=== PATIENT | female | born 1975 | race Caucasian/White ===

== ENCOUNTER 2016-11-14 14:57 | Outpatient (RCR) | payer BC | END 2017-02-12 | disposition home or self-care (01) | LOC: LAB → EDSEX 14:57 | DX: Z00.00 Encounter for general adult medical examination without abnormal findings (principal) ==

== ENCOUNTER → 2017-05-11 | Outpatient (CLI) | payer BC ==
[2017-05-12 01:04] LABS: T3 TOTAL 101 ng/dL (87-178)
== END ==
LOC: LAB 08:05
PROVIDERS: Internal Medicine
DX: L65.9 Nonscarring hair loss, unspecified (principal); R53.83 Other fatigue; I10 Essential (primary) hypertension

== ENCOUNTER → 2019-09-23 | Outpatient (CLI) | payer BC ==
[2019-09-23 09:02] LABS: EOS # 0.1 (0.04-0.40); EOS % 1.1 % (1.0-5.0); HEMATOCRIT 44.5 % (37.0-47.0); HEMOGLOBIN 14.4 g/dL (12.5-16.0); LYMPH# 1.6 (1.50-4.00); MEAN CELL VOLUME 95 fl (78-100); MEAN CORPUSCULAR HEMOGLOBIN 31 pg (27-31); MEAN CORPUSCULAR HGB CONC 32 g/dL (33-37); MEAN PLATELET VOLUME 9.9 fl (7.4-10.4); MONO # 0.5 (0.20-0.80); NEU # 2.3 (1.40-6.50); PLATELET COUNT 267 K/mm3 (130-400); RED CELL DISTRIBUTION WIDTH 13.2 % (11.5-14.5); WHITE BLOOD COUNT 4.5 K/mm3 (4.8-10.8)
[2019-09-23 09:10] LABS: ALBUMIN 4.9 g/dL (3.5-5.0); POTASSIUM 4.1 mmol/L (3.5-5.1)
[2019-09-23 09:11] LABS: CALCIUM 9.7 mg/dL (8.3-10.5)
[2019-09-23 09:12] LABS: TOTAL PROTEIN 7.8 g/dL (6.4-8.3)
[2019-09-23 09:14] LABS: TOTAL BILIRUBIN 1.3 mg/dL (0.2-1.2)
[2019-09-23 10:03] LABS: ERYTHROCYTE SEDIMENTATION RATE 1 mm/hr (0-20)
[2019-09-25 15:51] LABS: .COPPER,S 0.95 mcg/mL (())
== END ==
LOC: LAB 08:22
PROVIDERS: Internal Medicine
DX: Z00.00 Encounter for general adult medical examination without abnormal findings (principal); M50.30 Other cervical disc degeneration, unspecified cervical region; M08.4 Pauciarticular juvenile rheumatoid arthritis; M54.81 Occipital neuralgia; E28.2 Polycystic ovarian syndrome

== ENCOUNTER → 2020-09-28 | Outpatient (CLI) | payer BC, OTHER ==
[~2020-09-28] MED LIST: CEFAZOLIN 1 GM VIAL IV; NORCO 325 MG-7.1 TA1 PO; XANAX0.25 M1 PO; ZOLOFT25 M1 PO
[2020-09-28 09:25] LABS: EOS # 0.1 (0.04-0.40); EOS % 1.8 % (1.0-5.0); HEMATOCRIT 43.9 % (37.0-47.0); LYMPH# 1.4 (1.50-4.00); MEAN CELL VOLUME 95 fl (78-100); MEAN CORPUSCULAR HEMOGLOBIN 30 pg (27-31); MEAN CORPUSCULAR HGB CONC 32 g/dL (33-37); MEAN PLATELET VOLUME 9.5 fl (7.4-10.4); MONO # 0.5 (0.20-0.80); PLATELET COUNT 240 K/mm3 (130-400); RED BLOOD COUNT 4.64 M/mm3 (4.10-5.30); WHITE BLOOD COUNT 3.9 K/mm3 (4.8-10.8)
[2020-09-28 09:27] LABS: ALBUMIN 4.6 g/dL (3.5-5.0); POTASSIUM 4.1 mmol/L (3.5-5.1); SODIUM 141 mmol/L (136-145)
[2020-09-28 09:28] LABS: CALCIUM 9.1 mg/dL (8.3-10.5)
[2020-09-28 09:29] LABS: TOTAL PROTEIN 7.6 g/dL (6.4-8.3)
[2020-09-28 09:30] LABS: GLUCOSE 83 mg/dL (65-105)
[2020-09-28 09:31] LABS: CARBON DIOXIDE 27 mmol/L (22-29); TOTAL BILIRUBIN 1.2 mg/dL (0.2-1.2)
[2020-09-28 09:35] LABS: AST-SGOT 20 U/L (5-34)
[2020-09-28 09:36] LABS: ALT/SGPT 16 U/L (0-55)
[2020-09-28 10:32] LABS: ERYTHROCYTE SEDIMENTATION RATE 3 mm/hr (0-20)
[2020-09-29 02:39] LABS: T3 TOTAL 101 ng/dL (58-159)
== END ==
LOC: LAB 08:57
PROVIDERS: Internal Medicine
DX: Z00.00 Encounter for general adult medical examination without abnormal findings (principal)

== ENCOUNTER → 2020-11-09 | Outpatient (CLI) | payer BC, OTHER | LOC: LAB 16:35 | DX: Z01.812 Encounter for preprocedural laboratory examination (principal); M94.0 Chondrocostal junction syndrome [Tietze]; Z20.822 Contact with and (suspected) exposure to COVID-19 ==

== ENCOUNTER 2020-12-05 18:24 | Emergency (ER) | payer BC, OTHER ==
[2020-12-05] MEDS ORDERED: NORCO 325 MG-7.1 TA1 PO (18:59)
[2020-12-05 19:51] LABS: HEMATOCRIT 37.8 % (37.0-47.0); HEMOGLOBIN 12.8 g/dL (12.5-16.0); MEAN CELL VOLUME 93 fl (78-100); MEAN CORPUSCULAR HEMOGLOBIN 31 pg (27-31); MEAN CORPUSCULAR HGB CONC 34 g/dL (33-37); MEAN PLATELET VOLUME 9.6 fl (7.4-10.4); PLATELET COUNT 238 K/mm3 (130-400); RED BLOOD COUNT 4.08 M/mm3 (4.10-5.30); RED CELL DISTRIBUTION WIDTH 13.1 % (11.5-14.5); WHITE BLOOD COUNT 18.3 K/mm3 (4.8-10.8)
[2020-12-05 20:02] LABS: ALBUMIN 4.2 g/dL (3.5-5.0)
[2020-12-05 20:03] LABS: POTASSIUM 3.6 mmol/L (3.5-5.1)
[2020-12-05 20:04] LABS: CALCIUM 8.6 mg/dL (8.3-10.5)
[2020-12-05 20:05] LABS: TOTAL PROTEIN 6.7 g/dL (6.4-8.3)
[2020-12-05 20:07] LABS: TOTAL BILIRUBIN 2.3 mg/dL (0.2-1.2)
[2020-12-05 20:09] LABS: URINE APPEARANCE CLEAR; URINE BILIRUBIN NEGATIVE (NEGATIVE); URINE BLOOD TRACE (NEGATIVE); URINE COLOR YELLOW; URINE GLUCOSE NEGATIVE (NEGATIVE); URINE KETONE NEGATIVE (NEGATIVE); URINE LEUKOCYTE ESTERASE NEGATIVE (NEGATIVE); URINE MUCUS PRESENT (NOT PRESENT); URINE NITRATE NEGATIVE (NEGATIVE); URINE PROTEIN(semi-quant) TRACE mg/dL (NEGATIVE); URINE UROBILINOGEN NORMAL (NORMAL)
[2020-12-05 20:15] LABS: BAND 3 % (0-10); LYMPHOCYTE 7 % (20-51); MONOCYTE 6 % (3-10); NEUTROPHILS 84 % (42-75)
[2020-12-05 20:55] LABS: ERYTHROCYTE SEDIMENTATION RATE 2 mm/hr (0-20)
[2020-12-05 23:59] VITALS: BP 111/88
[2020-12-10] MEDS ORDERED: CEFAZOLIN 1 GM VIAL IV (09:31)
[2021-02-19] MEDS ORDERED: ZOLOFT25 M1 PO (13:11)
[2021-02-19] MEDS ORDERED: XANAX0.25 M1 PO (13:12)
== END 2020-12-05 23:59 | disposition short-term general hospital (02) ==
LOC: ED 18:24
PROVIDERS: Physician Assistant
DX: J86.9 Pyothorax without fistula (principal); L03.313 Cellulitis of chest wall; A41.9 Sepsis, unspecified organism; Z20.822 Contact with and (suspected) exposure to COVID-19; Z98.890 Other specified postprocedural states; Z88.2 Allergy status to sulfonamides; Z88.6 Allergy status to analgesic agent; Z79.891 Long term (current) use of opiate analgesic
CPT/HCPCS: J2270; J2405; J2543; J3370; J7030; J7050; Q9967

== ENCOUNTER → 2020-12-10 | Outpatient (CLI) | payer BC, OTHER ==
[2020-12-05 23:59] VITALS: BP 111/88
[2020-12-10 09:20] LABS: HEMOGLOBIN 13.5 g/dL (12.5-16.0); MEAN PLATELET VOLUME 8.9 fl (7.4-10.4); RED BLOOD COUNT 4.43 M/mm3 (4.10-5.30); RED CELL DISTRIBUTION WIDTH 13.3 % (11.5-14.5); WHITE BLOOD COUNT 7.2 K/mm3 (4.8-10.8)
[2020-12-10 09:25] LABS: ALBUMIN 4.5 g/dL (3.5-5.0); POTASSIUM 3.8 mmol/L (3.5-5.1)
[2020-12-10 09:27] LABS: CALCIUM 9.5 mg/dL (8.3-10.5)
[2020-12-10 09:28] LABS: TOTAL PROTEIN 7.9 g/dL (6.4-8.3)
[2020-12-10 09:30] LABS: TOTAL BILIRUBIN 0.8 mg/dL (0.2-1.2)
== END ==
LOC: LAB 08:31
PROVIDERS: Nurse Practitioner Family
DX: L02.213 Cutaneous abscess of chest wall (principal)

== ENCOUNTER → 2020-12-17 | Outpatient (CLI) | payer BC, OTHER ==
[2020-12-10 09:15] VITALS: BP 115/77
[2020-12-17 09:30] LABS: HEMATOCRIT 42.1 % (37.0-47.0); HEMOGLOBIN 13.8 g/dL (12.5-16.0); MEAN PLATELET VOLUME 8.9 fl (7.4-10.4); RED BLOOD COUNT 4.48 M/mm3 (4.10-5.30); RED CELL DISTRIBUTION WIDTH 13.3 % (11.5-14.5)
[2020-12-17 09:43] LABS: ALBUMIN 4.3 g/dL (3.5-5.0)
[2020-12-17 09:45] LABS: TOTAL PROTEIN 7.3 g/dL (6.4-8.3)
[2020-12-17 09:47] LABS: TOTAL BILIRUBIN 0.9 mg/dL (0.2-1.2)
== END ==
LOC: LAB 08:42
PROVIDERS: Internal Medicine Infectious Disease
DX: L02.213 Cutaneous abscess of chest wall (principal); Z79.899 Other long term (current) drug therapy

== ENCOUNTER 2020-12-22 14:09 | Outpatient (RCR) | payer BC, OTHER ==
[2020-12-10 09:15] VITALS: BP 115/77
[2020-12-17 08:39] VITALS: BP 118/77
--- NOTE | 2020-12-17 08:50 | NUR ---
REPORTS DISCOMFORT TO RT CHEST ABSCESS SITE AND VERBALIZES CONCERN FOR SURGICAL/INFECTION COMPLICATION. REQUESTS TO SEE TAL GOMEZ SINCE SHE WAS THE FIRST PROVIDER THAT SAW IT. ADVISE PATIENT TO CONTACT DR WEI'S OFFICE WITH HER CONCERNS. PATIENT STATES "BUT I'M HERE NOW AND THEY ARE AN HOUR AWAY. IT JUST TAKES A LONG TIME TO HEAR BACK FROM THEIR OFFICE." ENCOURAGE PATIENT TO MAINTAIN CONTACT WITH DR WEI AND MAY ALSO CONTACT PCP IF SHE FEELS IF SHE NEEDS TO SEE SOMEONE LOCAL.
[~2020-12-22 14:09] MED LIST changes: -XANAX0.25 M1 PO; -ZOLOFT25 M1 PO
[2020-12-22 15:09] VITALS: BP 126/71
[2021-02-19] MEDS ORDERED: ZOLOFT25 M1 PO (13:11)
[2021-02-19] MEDS ORDERED: XANAX0.25 M1 PO (13:12)
== END 2020-12-22 16:00 | disposition home or self-care (01) ==
LOC: AMSURD 14:09
DX: L02.213 Cutaneous abscess of chest wall (principal); F41.9 Anxiety disorder, unspecified
CPT/HCPCS: J0690

== ENCOUNTER → 2020-12-24 | Outpatient (CLI) | payer BC, OTHER ==
[2020-12-22 15:09] VITALS: BP 126/71
[~2020-12-24] MED LIST changes: +XANAX0.25 M1 PO; +ZOLOFT25 M1 PO
[2020-12-24 08:29] LABS: HEMATOCRIT 40.1 % (37.0-47.0); HEMOGLOBIN 13.1 g/dL (12.5-16.0); RED BLOOD COUNT 4.25 M/mm3 (4.10-5.30); RED CELL DISTRIBUTION WIDTH 13.3 % (11.5-14.5); WHITE BLOOD COUNT 4.2 K/mm3 (4.8-10.8)
[2020-12-24 08:39] LABS: ALBUMIN 4.2 g/dL (3.5-5.0); POTASSIUM 3.9 mmol/L (3.5-5.1); SODIUM 138 mmol/L (136-145)
[2020-12-24 08:40] LABS: CALCIUM 8.7 mg/dL (8.3-10.5)
[2020-12-24 08:42] LABS: GLUCOSE 91 mg/dL (65-105); TOTAL PROTEIN 7.2 g/dL (6.4-8.3)
[2020-12-24 08:43] LABS: CARBON DIOXIDE 23 mmol/L (22-29)
[2020-12-24 08:44] LABS: TOTAL BILIRUBIN 1.5 mg/dL (0.2-1.2)
[2020-12-24 08:47] LABS: AST-SGOT 16 U/L (5-34)
[2020-12-24 08:48] LABS: ALT/SGPT 9 U/L (0-55)
== END ==
LOC: LAB 08:09
PROVIDERS: Internal Medicine Infectious Disease
DX: L02.213 Cutaneous abscess of chest wall (principal)

== ENCOUNTER → 2020-12-31 | Outpatient (CLI) | payer BC, OTHER ==
[2020-12-22 15:09] VITALS: BP 126/71
[2020-12-31 08:35] LABS: HEMATOCRIT 41.1 % (37.0-47.0); HEMOGLOBIN 13.4 g/dL (12.5-16.0); MEAN PLATELET VOLUME 9.1 fl (7.4-10.4); RED BLOOD COUNT 4.37 M/mm3 (4.10-5.30); RED CELL DISTRIBUTION WIDTH 13.1 % (11.5-14.5); WHITE BLOOD COUNT 5.3 K/mm3 (4.8-10.8)
[2020-12-31 08:45] LABS: ALBUMIN 4.2 g/dL (3.5-5.0); SODIUM 138 mmol/L (136-145)
[2020-12-31 08:47] LABS: CALCIUM 8.9 mg/dL (8.3-10.5)
[2020-12-31 08:48] LABS: GLUCOSE 73 mg/dL (65-105); TOTAL PROTEIN 7.1 g/dL (6.4-8.3)
[2020-12-31 08:49] LABS: CARBON DIOXIDE 26 mmol/L (22-29)
[2020-12-31 08:50] LABS: TOTAL BILIRUBIN 1.3 mg/dL (0.2-1.2)
[2020-12-31 08:53] LABS: AST-SGOT 19 U/L (5-34)
[2020-12-31 08:54] LABS: ALT/SGPT 15 U/L (0-55)
== END ==
LOC: LAB 08:23
DX: L02.213 Cutaneous abscess of chest wall (principal)

== ENCOUNTER → 2021-01-07 | Outpatient (CLI) | payer BC, OTHER ==
[2021-01-07 09:39] LABS: HEMATOCRIT 40.1 % (37.0-47.0); HEMOGLOBIN 13.2 g/dL (12.5-16.0); MEAN PLATELET VOLUME 9.1 fl (7.4-10.4); RED BLOOD COUNT 4.26 M/mm3 (4.10-5.30); RED CELL DISTRIBUTION WIDTH 13.3 % (11.5-14.5); WHITE BLOOD COUNT 6.6 K/mm3 (4.8-10.8)
[2021-01-07 09:45] LABS: ALBUMIN 4.2 g/dL (3.5-5.0)
[2021-01-07 09:46] LABS: POTASSIUM 3.8 mmol/L (3.5-5.1); SODIUM 139 mmol/L (136-145)
[2021-01-07 09:47] LABS: CALCIUM 8.5 mg/dL (8.3-10.5)
[2021-01-07 09:48] LABS: GLUCOSE 108 mg/dL (65-105)
[2021-01-07 09:49] LABS: CARBON DIOXIDE 23 mmol/L (22-29)
[2021-01-07 09:50] LABS: TOTAL BILIRUBIN 1.5 mg/dL (0.2-1.2)
[2021-01-07 09:53] LABS: AST-SGOT 16 U/L (5-34)
[2021-01-07 09:55] LABS: ALT/SGPT 12 U/L (0-55)
== END ==
LOC: LAB 09:22
DX: L02.213 Cutaneous abscess of chest wall (principal)

== ENCOUNTER → 2021-01-14 | Outpatient (CLI) | payer BC, OTHER ==
[2021-01-14 09:20] LABS: HEMATOCRIT 44.6 % (37.0-47.0); HEMOGLOBIN 14.5 g/dL (12.5-16.0); MEAN PLATELET VOLUME 8.9 fl (7.4-10.4); RED BLOOD COUNT 4.76 M/mm3 (4.10-5.30); RED CELL DISTRIBUTION WIDTH 13.2 % (11.5-14.5); WHITE BLOOD COUNT 7.6 K/mm3 (4.8-10.8)
[2021-01-14 09:30] LABS: ALBUMIN 4.6 g/dL (3.5-5.0); POTASSIUM 3.9 mmol/L (3.5-5.1); SODIUM 138 mmol/L (136-145)
[2021-01-14 09:32] LABS: GLUCOSE 122 mg/dL (65-105)
[2021-01-14 09:33] LABS: TOTAL PROTEIN 7.7 g/dL (6.4-8.3)
[2021-01-14 09:34] LABS: CARBON DIOXIDE 24 mmol/L (22-29); TOTAL BILIRUBIN 1.5 mg/dL (0.2-1.2)
[2021-01-14 09:38] LABS: AST-SGOT 18 U/L (5-34)
[2021-01-14 09:39] LABS: ALT/SGPT 13 U/L (0-55)
== END ==
LOC: LAB 09:04
PROVIDERS: Internal Medicine Infectious Disease
DX: L02.213 Cutaneous abscess of chest wall (principal)

== ENCOUNTER → 2021-01-21 | Outpatient (CLI) | payer BC, OTHER ==
[2021-01-21 10:05] LABS: HEMATOCRIT 42.3 % (37.0-47.0); HEMOGLOBIN 13.9 g/dL (12.5-16.0); MEAN PLATELET VOLUME 9.3 fl (7.4-10.4); RED BLOOD COUNT 4.49 M/mm3 (4.10-5.30); RED CELL DISTRIBUTION WIDTH 13.2 % (11.5-14.5); WHITE BLOOD COUNT 4.4 K/mm3 (4.8-10.8)
[2021-01-21 10:17] LABS: ALBUMIN 4.4 g/dL (3.5-5.0); POTASSIUM 4.2 mmol/L (3.5-5.1); SODIUM 139 mmol/L (136-145)
[2021-01-21 10:18] LABS: CALCIUM 8.9 mg/dL (8.3-10.5)
[2021-01-21 10:19] LABS: GLUCOSE 92 mg/dL (65-105)
[2021-01-21 10:20] LABS: TOTAL PROTEIN 7.4 g/dL (6.4-8.3)
[2021-01-21 10:21] LABS: CARBON DIOXIDE 23 mmol/L (22-29); TOTAL BILIRUBIN 0.7 mg/dL (0.2-1.2)
[2021-01-21 10:25] LABS: AST-SGOT 18 U/L (5-34)
[2021-01-21 10:26] LABS: ALT/SGPT 14 U/L (0-55)
== END ==
LOC: LAB 09:54
PROVIDERS: Internal Medicine Infectious Disease
DX: L02.213 Cutaneous abscess of chest wall (principal)

== ENCOUNTER → 2021-02-15 | Outpatient (CLI) | payer BC, OTHER ==
[2021-02-15 16:34] LABS: BASO # 0.02 (0.02-0.10); EOS # 0.03 (0.04-0.40); EOS % 0.5 % (1.0-5.0); HEMATOCRIT 42.2 % (37.0-47.0); HEMOGLOBIN 13.8 g/dL (12.5-16.0); LYMPH# 1.79 (1.50-4.00); MEAN CELL VOLUME 93 fl (78-100); MEAN CORPUSCULAR HEMOGLOBIN 31 pg (27-31); MEAN CORPUSCULAR HGB CONC 33 g/dL (33-37); MEAN PLATELET VOLUME 9.4 fl (7.4-10.4); MONO # 0.49 (0.20-0.80); PLATELET COUNT 240 K/mm3 (130-400); RED BLOOD COUNT 4.52 M/mm3 (4.10-5.30); RED CELL DISTRIBUTION WIDTH 12.5 % (11.5-14.5)
[2021-02-15 16:43] LABS: ALBUMIN 4.8 g/dL (3.5-5.0); POTASSIUM 3.7 mmol/L (3.5-5.1); SODIUM 140 mmol/L (136-145)
[2021-02-15 16:44] LABS: CALCIUM 9.9 mg/dL (8.3-10.5)
[2021-02-15 16:45] LABS: GLUCOSE 94 mg/dL (65-105); TOTAL PROTEIN 7.8 g/dL (6.4-8.3)
[2021-02-15 16:47] LABS: CARBON DIOXIDE 23 mmol/L (22-29); TOTAL BILIRUBIN 1.4 mg/dL (0.2-1.2)
[2021-02-15 16:51] LABS: AST-SGOT 19 U/L (5-34)
[2021-02-15 16:52] LABS: ALT/SGPT 15 U/L (0-55)
[2021-02-15 17:21] LABS: TROPONIN-I < 0.03 ng/mL (<0.030)
== END ==
LOC: LAB 16:20
PROVIDERS: Nurse Practitioner
DX: T81.49XA Infection following a procedure, other surgical site, initial encounter (principal); R00.2 Palpitations

== ENCOUNTER → 2021-02-19 | Outpatient (CLI) | payer BC, OTHER ==
[~2021-02-19] VITALS: Ht 162.6 cm; Wt 52.3 kg
[2021-02-19 11:31] VITALS: BP 132/88
[2021-02-19 14:15] VITALS: BP 129/81
== END ==
LOC: AMSURD 11:06
DX: F41.1 Generalized anxiety disorder (principal); E86.0 Dehydration
CPT/HCPCS: J7030

== ENCOUNTER → 2021-03-18 | Outpatient (CLI) | payer BC, OTHER ==
[2021-03-18 10:28] LABS: BASO # 0.03 (0.02-0.10); EOS # 0.05 (0.04-0.40); EOS % 0.9 % (1.0-5.0); HEMATOCRIT 43.4 % (37.0-47.0); HEMOGLOBIN 13.9 g/dL (12.5-16.0); MEAN CELL VOLUME 95 fl (78-100); MEAN CORPUSCULAR HEMOGLOBIN 30 pg (27-31); MEAN CORPUSCULAR HGB CONC 32 g/dL (33-37); MEAN PLATELET VOLUME 9.3 fl (7.4-10.4); MONO # 0.62 (0.20-0.80); NEU # 3.52 (1.40-6.50); PLATELET COUNT 227 K/mm3 (130-400); RED BLOOD COUNT 4.59 M/mm3 (4.10-5.30); RED CELL DISTRIBUTION WIDTH 12.7 % (11.5-14.5); WHITE BLOOD COUNT 5.7 K/mm3 (4.8-10.8)
== END ==
LOC: LAB 09:55
PROVIDERS: Internal Medicine Infectious Disease
DX: T81.49XA Infection following a procedure, other surgical site, initial encounter (principal)

== ENCOUNTER → 2021-05-17 | Outpatient (CLI) | payer BC, OTHER ==
[2021-05-17 08:55] LABS: BASO # 0.03 K/mm3 (0.02-0.10); EOS # 0.05 K/mm3 (0.04-0.40); EOS % 1.1 % (1.0-5.0); HEMATOCRIT 43.4 % (37.0-47.0); LYMPH# 1.58 K/mm3 (1.50-4.00); MEAN CELL VOLUME 95 fl (78-100); MEAN CORPUSCULAR HEMOGLOBIN 31 pg (27-31); MEAN CORPUSCULAR HGB CONC 32 g/dL (33-37); MEAN PLATELET VOLUME 9.4 fl (7.4-10.4); MONO # 0.48 K/mm3 (0.20-0.80); NEU # 2.48 K/mm3 (1.40-6.50); PLATELET COUNT 244 K/mm3 (130-400); RED BLOOD COUNT 4.56 M/mm3 (4.10-5.30); RED CELL DISTRIBUTION WIDTH 13.5 % (11.5-14.5); WHITE BLOOD COUNT 4.6 K/mm3 (4.8-10.8)
[2021-05-17 08:58] LABS: ALBUMIN 4.2 g/dL (3.5-5.0); POTASSIUM 4.1 mmol/L (3.5-5.1); SODIUM 136 mmol/L (136-145)
[2021-05-17 08:59] LABS: CALCIUM 9.2 mg/dL (8.3-10.5)
[2021-05-17 09:00] LABS: GLUCOSE 87 mg/dL (65-105); TOTAL PROTEIN 7.3 g/dL (6.4-8.3)
[2021-05-17 09:01] LABS: CARBON DIOXIDE 23 mmol/L (22-29)
[2021-05-17 09:02] LABS: TOTAL BILIRUBIN 0.9 mg/dL (0.2-1.2)
[2021-05-17 09:06] LABS: AST-SGOT 19 U/L (5-34)
[2021-05-17 09:07] LABS: ALT/SGPT 18 U/L (0-55)
[2021-05-17 10:17] LABS: ERYTHROCYTE SEDIMENTATION RATE 4 mm/hr (0-20)
== END ==
LOC: LAB 08:11
PROVIDERS: Nurse Practitioner
DX: M08.40 Pauciarticular juvenile rheumatoid arthritis, unspecified site (principal)

== ENCOUNTER → 2022-02-28 | Outpatient (CLI) | payer OTHER ==
[2022-02-28 09:44] LABS: BASO # 0.02 K/mm3 (0.02-0.10); EOS # 0.08 K/mm3 (0.04-0.40); EOS % 1.8 % (1.0-5.0); HEMATOCRIT 43.8 % (37.0-47.0); HEMOGLOBIN 14.2 g/dL (12.5-16.0); LYMPH# 1.55 K/mm3 (1.50-4.00); MEAN CELL VOLUME 94 fl (78-100); MEAN CORPUSCULAR HEMOGLOBIN 31 pg (27-31); MEAN CORPUSCULAR HGB CONC 32 g/dL (33-37); MEAN PLATELET VOLUME 9.6 fl (7.4-10.4); NEU # 2.37 K/mm3 (1.40-6.50); PLATELET COUNT 245 K/mm3 (130-400); RED BLOOD COUNT 4.66 M/mm3 (4.10-5.30); WHITE BLOOD COUNT 4.5 K/mm3 (4.8-10.8)
[2022-02-28 09:51] LABS: ALBUMIN 4.7 g/dL (3.5-5.0); POTASSIUM 4.2 mmol/L (3.5-5.1)
[2022-02-28 09:52] LABS: CALCIUM 9.6 mg/dL (8.3-10.5)
[2022-02-28 09:56] LABS: TOTAL BILIRUBIN 0.9 mg/dL (0.2-1.2)
[2022-02-28 10:51] LABS: ERYTHROCYTE SEDIMENTATION RATE 15 mm/hr (0-20)
== END ==
LOC: LAB 09:25
PROVIDERS: Internal Medicine
DX: Z00.00 Encounter for general adult medical examination without abnormal findings (principal); Z12.31 Encounter for screening mammogram for malignant neoplasm of breast; F41.1 Generalized anxiety disorder

== ENCOUNTER → 2023-09-01 | Outpatient (CLI) | payer OTHER ==
[2023-09-01 11:53] LABS: BASO # 0.03 K/mm3 (0.02-0.10); EOS # 0.04 K/mm3 (0.04-0.40); HEMATOCRIT 44.6 % (37.0-47.0); HEMOGLOBIN 14.2 g/dL (12.5-16.0); LYMPH# 1.48 K/mm3 (1.50-4.00); MEAN CELL VOLUME 98 fl (78-100); MEAN CORPUSCULAR HEMOGLOBIN 31 pg (27-31); MEAN CORPUSCULAR HGB CONC 32 g/dL (33-37); MEAN PLATELET VOLUME 9.8 fl (7.4-10.4); MONO # 0.41 K/mm3 (0.20-0.80); NEU # 2.14 K/mm3 (1.40-6.50); PLATELET COUNT 239 K/mm3 (130-400); RED BLOOD COUNT 4.57 M/mm3 (4.10-5.30); WHITE BLOOD COUNT 4.1 K/mm3 (4.8-10.8)
[2023-09-01 12:02] LABS: ALBUMIN 4.8 g/dL (3.5-5.0); SODIUM 137 mmol/L (136-145)
[2023-09-01 12:03] LABS: CALCIUM 9.2 mg/dL (8.3-10.5)
[2023-09-01 12:05] LABS: GLUCOSE 81 mg/dL (65-105); TOTAL PROTEIN 7.3 g/dL (6.4-8.3)
[2023-09-01 12:06] LABS: CARBON DIOXIDE 24 mmol/L (22-29)
[2023-09-01 12:07] LABS: TOTAL BILIRUBIN 0.9 mg/dL (0.2-1.2)
[2023-09-01 12:10] LABS: AST-SGOT 24 U/L (5-34)
[2023-09-01 12:12] LABS: ALT/SGPT 22 U/L (0-55)
[2023-09-01 23:32] LABS: T3 FREE 2.9 pg/mL (1.7-3.7)
== END ==
LOC: RAD 11:03
PROVIDERS: Internal Medicine
DX: Z00.00 Encounter for general adult medical examination without abnormal findings (principal); M47.812 Spondylosis without myelopathy or radiculopathy, cervical region; M45.0 Ankylosing spondylitis of multiple sites in spine